=== PATIENT | male | born 1955 | race Asian ===

== ENCOUNTER 2018-05-10 01:40 | Emergency (ER) | payer OTHER ==
[~2018-05-10] VITALS: Ht 170.2 cm; Wt 81.6 kg
[2018-05-10 01:43] VITALS: BP_SYST 132
--- NOTE | 2018-05-10 01:43 | NUR ---
Patient to ER [facility] with [facility] for legal blood draw.
--- NOTE | 2018-05-10 01:56 | NUR ---
Written and verbal consent obtained from patient for blood alcohol, name and verified by patient. Disinfected patient's skin with Povidone-Iodine that did not contain alcohol or other volatile organic compound. Collected the blood from the subject named by venipuncture, in the presence of Officer Michael. Used a sterile, dry hypodermic needle and dry vacuum blood collection. The dry vacuum blood collection tubes were supplied by the officer named above. Withdrew a specimen of blood from Right AC of the subject named above. Inverted the blood tube several times to ensure that the preservative and anticoagulant were thoroughly mixed in the blood specimen. I initialed the blood tube label for identification. The labeled blood tube was handed directly to the Officer named above. The blood tube stopper remained in place while I had possession of the blood tube. The Officer placed tube into envelope and sealed it in my presence. Envelope initialed by myself and Officer named above. Patient tolerated well, bandage applied, and bleeding controlled.
--- NOTE | 2018-05-10 02:05 | NUR ---
Patient left ER ambulating without difficulty in no acute distress in custody of P. Patient left ER in handcuffs, without c/o pain/discomfort.
== END 2018-05-10 02:05 ==
LOC: SED 01:40
DX: Z02.83 Encounter for blood-alcohol and blood-drug test (principal)